=== PATIENT | male | born 1945 | race Caucasian/White ===

== ENCOUNTER 2016-10-29 14:02 | Inpatient (IN) | payer MEDICARE, MEDICAID ==
[2016-10-29] MEDS ORDERED: ATIVAN0.5 MG PO (14:33)
[2016-10-29] MEDS ORDERED: VALIUM5 MG PO (14:34)
[2016-10-29] MEDS ORDERED: RISPERDAL2 M1 PO (14:35)
[2016-10-29] MEDS ORDERED: DEPAKOTE250 MG PO (14:37)
[2016-10-29] MEDS ORDERED: DILANTIN100 MG PO (14:38)
[2016-10-29] MEDS ORDERED: FERROUS SULFAT324 M1 PO (14:41)
[2016-10-29] MEDS ORDERED: KEPPRA750 MG PO ×2 (14:42→14:43)
[2016-10-29] MEDS ORDERED: KLONOPIN0.5 MG PO (14:43)
[2016-10-29] MEDS ORDERED: LASIX40 MG PO (14:44)
[2016-10-29] MEDS ORDERED: MULTI VITAMINS1 TAB PO (14:45)
[2016-10-29] MEDS ORDERED: TEGRETOL200 MG PO (14:46)
[2016-10-29] MEDS ORDERED: VITAMIN D-32000 UNI1 PO (14:46)
[2016-10-29] MEDS ORDERED: ZONEGRAN100 MG PO (14:48)
[2016-10-29 18:34] VITALS: BP 117/64
[2016-10-29 20:12] VITALS: BP 100/60
[2016-10-30 06:41] LABS: BASO % 0.6 % (0.0-1.0); EOS # 0.2 10*3/uL (0.0-0.4); EOS % 3.2 % (1.0-4.0); HEMATOCRIT 36.8 % (42.0-52.0); HEMOGLOBIN 12.2 g/dl (14.0-18.0); LYMPH # 1.3 10*3/uL (1.3-4.4); LYMPH % 27.1 % (27.0-41.0); MEAN CELL VOLUME 94.8 fl (80.0-94.0); MEAN CORPUSCULAR HGB 31.4 pg (27.0-31.0); MEAN CORPUSCULAR HGB CONC 33.2 g/dl (33.0-37.0); MEAN PLATELET VOLUME 8.7 fl (9.6-12.3); MONO # 0.5 10*3/uL (0.1-1.0); MONO % 9.9 % (3.0-9.0); NEUT # 2.7 10*3/uL (2.3-7.9); NEUT % 58.8 % (47.0-73.0); PLATELET COUNT AUTOMATED 151 10*3/uL (130-400); RED BLOOD COUNT 3.88 10*6/uL (4.50-5.90); RED CELL DISTRI WIDTH 13.2 % (0-14.5); WHITE BLOOD COUNT 4.7 10*3/uL (4.8-10.8)
[2016-10-30 07:00] LABS: HEMOGLOBIN A1c 5.6 % (4.8-5.6)
[2016-10-30 07:08] LABS: ALBUMIN 3.2 gm/dl (3.1-4.5); ALKALINE PHOSPHATASE 112 U/L (45-117); BILIRUBIN, TOTAL 0.3 mg/dl (0.2-1.0); BUN 14 mg/dl (7-24); CARBON DIOXIDE 26 mmol/L (21-32); CHLORIDE 108 mmol/L (98-107); CHOLESTEROL 147 mg/dL (<200); EST GLOM FILT AFRICAN AMERICAN > 60 ml/min; GLUCOSE 77 mg/dL (65-99); HDL CHOLESTEROL 65 mg/dl (40-60); LDL CHOLESTEROL 71 mg/dL (9-159); POTASSIUM 4.4 mmol/L (3.5-5.1); SGOT/AST 15 IU/L (3-35); SGPT/ALT 16 U/L (12-78); SODIUM 144 mmol/L (136-145); TOTAL PROTEIN 6.2 gm/dL (6.4-8.2); TRIGLYCERIDES 53 mg/dl (<150); VLDL CHOLESTEROL 11 mg/dL (6-40)
[2016-10-30 07:41] LABS: FOLIC ACID 6.34 ng/mL (>5.38); VITAMIN D, 25-HYDROXY 39.8 ng/mL (30-100)
[2016-10-30 08:09] VITALS: BP 108/62
[2016-10-30 19:56] VITALS: BP 105/60
[2016-10-31 07:58] VITALS: BP 110/64
[2016-10-31 20:00] VITALS: BP 104/61
[2016-11-01 07:57] VITALS: BP 117/65
[2016-11-01 09:14] LABS: BILIRUBIN NEGATIVE (NEGATIVE); BLOOD NEGATIVE (NEGATIVE); CLARITY CLEAR (CLEAR); COLOR YELLOW (YELLOW); GLUCOSE NEGATIVE (NEGATIVE); KETONE TRACE (NEGATIVE); LEUKO ESTERASE NEGATIVE (NEGATIVE); NITRITE NEGATIVE (NEGATIVE); PH 5.5 (5.0-9.0); PROTEIN NEGATIVE (NEGATIVE)
[2016-11-01 10:21] LABS: BACTERIA TRACE; URINE REFLEX COMMENT NO (NO)
[2016-11-01 13:06] LABS: LEVETIRACETAM (KEPPRA) 716936 25.2 ug/mL (10.0-40.0)
[2016-11-01 20:00] VITALS: BP 100/60
[2016-11-02 08:15] VITALS: BP 104/67
[2016-11-02 20:00] VITALS: BP 109/56
[2016-11-03 07:38] LABS: BUN 15 mg/dl (7-24); CARBON DIOXIDE 32 mmol/L (21-32); CHLORIDE 104 mmol/L (98-107); EST GLOM FILT AFRICAN AMERICAN > 60 ml/min; GLUCOSE 86 mg/dL (65-99); POTASSIUM 3.6 mmol/L (3.5-5.1); SODIUM 142 mmol/L (136-145)
[2016-11-03 07:45] VITALS: BP 105/55
[2016-11-03 20:59] VITALS: BP 100/64
[2016-11-04 08:52] VITALS: BP 95/53
[2016-11-04 20:00] VITALS: BP 138/86
[2016-11-05 08:00] VITALS: BP 130/68
[2016-11-05 17:08] LABS: RBC, FOLATE HEMATOCRIT 39.1 % (37.5-51.0)
[2016-11-05 20:07] VITALS: BP 103/53
[2016-11-06 07:43] VITALS: BP 117/62
[2016-11-06 20:32] VITALS: BP 99/62
[2016-11-07 08:00] VITALS: BP 110/68
[2016-11-07 20:01] VITALS: BP 117/62
[2016-11-08 07:58] VITALS: BP 119/74
[2016-11-08] MEDS ORDERED: EXELON13.3 MG/21 T (08:27)
[2016-11-08] MEDS ORDERED: NAMENDA-5 PO (08:31)
[2016-11-08] MEDS ORDERED: D-1000 185 MG-11 TAB PO (08:31)
[2016-11-08] MEDS ORDERED: LORAZEPAM1 MG PO (08:31)
[2016-11-08] MEDS ORDERED: AVPAK EXTENDED100 M1 PO (08:31)
[2016-11-08] MEDS ORDERED: PALIPERIDONE ER6 MG PO (08:31)
== END 2016-11-08 12:17 | disposition other institution (70) | DRG 885 ==
LOC: 3N 14:02
PROVIDERS: Internal Medicine; Psychiatry & Neurology Psychiatry
DX: F31.81 Bipolar II disorder (principal); F03.91 Unspecified dementia, unspecified severity, with behavioral disturbance; L97.919 Non-pressure chronic ulcer of unspecified part of right lower leg with unspecified severity; F23 Brief psychotic disorder; G40.909 Epilepsy, unspecified, not intractable, without status epilepticus; I10 Essential (primary) hypertension; I87.2 Venous insufficiency (chronic) (peripheral); D50.9 Iron deficiency anemia, unspecified; L85.9 Epidermal thickening, unspecified; I83.018 Varicose veins of right lower extremity with ulcer other part of lower leg; D72.819 Decreased white blood cell count, unspecified; Z91.14 Patient's other noncompliance with medication regimen